=== PATIENT | male | born 1955 ===

== ENCOUNTER → 2022-08-15 08:32 | Outpatient (BNVA) | payer MEDICARE, MEDICAID, SELFPAY | PROVIDERS: Referring Provider Nurse Practitioner Acute Care; Visit Provider Surgery | DX: C44.629 Squamous cell carcinoma of skin of left upper limb, including shoulder (principal) | CPT/HCPCS: 11602; 99202 ==

== ENCOUNTER 2022-08-15 09:01 | Outpatient (REF) | payer MEDICARE, MEDICAID, SELFPAY ==
--- NOTE | 2022-08-15 08:55 | SKI_PTH ---
PATIENT: VINNY DORADO LOC: [facility] U#:[id number] AGE/SX: 67/M ROOM: RE08/15/[address]: Alida Muñoz MD : [id number] BED: DIS: 08/15/2022 SPEC #: [id number] RECD: 08/15/22 12:45 STATUS: LELA WHITE #: [id number] CLARISSA: 08/15/22 08:[address]: Alida Muñoz DEPT: Surgical Specimen RECD BY: Lee Ann Mckeon Tissues: 1 - SKIN BIOPSY(SHAVE/PUNCH) Procedures: SKIN LEVEL 4 Comments: [id number]
== END 2022-08-15 09:02 | disposition home or self-care (01) ==
LOC: LBN 09:01
PROVIDERS: Visit Provider Surgery
DX: C44.629 Squamous cell carcinoma of skin of left upper limb, including shoulder (principal)
CPT/HCPCS: 88305

== ENCOUNTER → 2022-08-25 07:46 | Outpatient (BNVA) | payer MEDICARE, MEDICAID, SELFPAY | PROVIDERS: Visit Provider Surgery | DX: Z48.817 Encounter for surgical aftercare following surgery on the skin and subcutaneous tissue (principal) | CPT/HCPCS: 99212 ==